=== PATIENT | female | born 1970 | race Caucasian/White ===

== ENCOUNTER 2017-11-06 09:38 | Emergency (ER) | payer OTHER ==
[~2017-11-06 09:38] MED LIST: DOCU-116 PO; LIDOP TP; MO8B PO; TYL3 PO
[2017-11-06 10:28] LABS: BASOPHILS % (AUTO) 0.3 % (0.0-5.0); EOSINOPHILS % (AUTO) 0.2 % (0.0-8.0); HEMATOCRIT 39.6 % (36-48); LYMPHOCYTES % (AUTO) 17.4 % (21.0-51.0); MEAN CORPUSCULAR HEMOGLOBIN 28.4 pg (27.0-33.0); MEAN CORPUSCULAR HGB CONC 33.7 g/dL (32.0-36.0); MEAN CORPUSCULAR VOLUME 84.2 fL (79-99); MONOCYTES % (AUTO) 4.5 % (3.0-13.0); NEUTROPHILS % (AUTO) 77.6 % (40.0-77.0); PLATELET COUNT (AUTO) 235 K/uL (130-400); RED CELL DISTRIBUTION WIDTH 15.3 % (11.0-15.5); WHITE BLOOD COUNT (AUTO) 9.1 K/uL (4.8-10.8)
[2017-11-06 10:28] LABS: APPEARANCE,URINE Clear (CLEAR); BILIRUBIN,URINE Negative (NEGATIVE); COLOR,URINE Yellow (YELLOW); GLUCOSE, URINE (UA) Negative (NEGATIVE); KETONES,URINE Negative (NEGATIVE); LEUKOCYTE ESTERASE ,URINE Negative (NEGATIVE); NITRATE,URINE Negative (NEGATIVE); OCCULT BLOOD,URINE Large (NEGATIVE); PROTEIN,URINE Negative (NEGATIVE); UROBILINOGEN,URINE 0.2 mg/dL (0.2-1.0)
[2017-11-06 10:36] LABS: CREATININE 0.7 mg/dL (0.5-1.5)
[2017-11-06 10:37] LABS: BACTERIA,URINE Rare /HPF (None Seen); WBC,URINE None Seen /HPF (0-1)
[2017-11-06 10:38] LABS: INR 0.93 (0.85-1.15); PARTIAL THROMBOPLASTIN TIME 24.1 SEC (26.3-35.5); PROTHROMBIN TIME 9.8 SEC (9.6-11.6)
[2017-11-06 10:41] LABS: ALBUMIN 3.7 g/dL (3.5-5.0); BILIRUBIN,TOTAL 0.3 mg/dL (0.2-1.0); TOTAL PROTEIN, SERUM 7.9 g/dL (6.0-8.3)
[2017-11-06] MEDS ORDERED: ASPIRIN 325 MG TABLET ONE (11:21)
[2017-11-06] MEDS ORDERED: MECLIZINE HCL 25 MG TABLET ONE (11:21)
[2017-11-06] MEDS ORDERED: SODIUM CHLORIDE 0.9% 1000ML 1,000 ML IV ONE (14:10)
== END 2017-11-06 15:25 | disposition home or self-care (01) ==
LOC: EDH 09:38
DX: H81.391 Other peripheral vertigo, right ear (principal); R79.1 Abnormal coagulation profile
CPT/HCPCS: 36415; 70450; 80053; 81001; 84484; 85025; 85610; 85730; 93005; 96360; 99285; J7030

== ENCOUNTER 2022-01-31 12:45 | Emergency (ER) | payer OTHER ==
[~2022-01-31] VITALS: Ht 170.2 cm; Wt 60.3 kg
[~2022-01-31 12:45] MED LIST changes: +IBUP-1493 PO; -MO8B PO; +PANT40TA55 PO
[2022-01-31 13:34] LABS: BASOPHILS % (AUTO) 0.5 % (0.0-5.0); EOSINOPHILS % (AUTO) 0.8 % (0.0-8.0); HEMATOCRIT 38.1 % (36-48); LYMPHOCYTES % (AUTO) 24.2 % (21.0-51.0); MEAN CORPUSCULAR HEMOGLOBIN 28.6 pg (27.0-33.0); MEAN CORPUSCULAR HGB CONC 32.3 g/dL (32.0-36.0); MEAN CORPUSCULAR VOLUME 88.6 fL (79-99); MONOCYTES % (AUTO) 5.7 % (3.0-13.0); NEUTROPHILS % (AUTO) 68.5 % (40.0-77.0); PLATELET COUNT (AUTO) 206 K/uL (130-400); RED CELL DISTRIBUTION WIDTH 16.6 % (11.0-15.5); WHITE BLOOD COUNT (AUTO) 6.5 K/uL (4.8-10.8)
[2022-01-31 14:18] LABS: CARBON DIOXIDE 22 mmol/L (21-32); CHLORIDE 106 mmol/L (101-111); CREATININE 0.8 mg/dL (0.5-1.5); GLOMERULAR FILTR. RATE CALC 81 mL/min (>60); GLUCOSE,RANDOM 85 mg/dL (70-105); POTASSIUM 3.6 mmol/L (3.5-5.1); SODIUM SERUM 141 mmol/L (136-145); UREA NITROGEN, BLOOD 10 mg/dL (7-18)
[2022-01-31 14:23] LABS: APPEARANCE,URINE Clear (CLEAR); BILIRUBIN,URINE Negative (NEGATIVE); COLOR,URINE Yellow (YELLOW); GLUCOSE, URINE (UA) Negative (NEGATIVE); KETONES,URINE Negative (NEGATIVE); LEUKOCYTE ESTERASE ,URINE Negative (NEGATIVE); NITRATE,URINE Negative (NEGATIVE); OCCULT BLOOD,URINE Negative (NEGATIVE); PH,URINE 6.5 (5.0-8.0); PROTEIN,URINE Negative (NEGATIVE); UROBILINOGEN,URINE 0.2 mg/dL (0.2-1.0)
[2022-01-31 14:23] LABS: ALANINE AMINOTRANSFERASE 9 U/L (12-78); ALBUMIN 3.6 g/dL (3.5-5.0); ASPARTATE AMINOTRANSFERASE 15 U/L (10-37); TOTAL PROTEIN, SERUM 7.7 g/dL (6.0-8.3)
[2022-01-31 14:24] LABS: ACETAMINOPHEN < 1 mcg/mL (10-30); SALICYLATE < 2.8 mg/dL (2.8-20.0)
[2022-01-31 14:35] LABS: AMPHET/METH SCREEN,URINE NEGATIVE (NEGATIVE); BARBITURATE SCREEN, URINE NEGATIVE (NEGATIVE); BENZODIAZEPINES SCREEN,URINE POSITIVE (NEGATIVE); CANNABINOID SCREEN,URINE NEGATIVE (NEGATIVE); COCAINE SCREEN,URINE NEGATIVE (NEGATIVE); OPIATE SCREEN,URINE NEGATIVE (NEGATIVE); PHENCYCLIDINE SCREEN,URINE NEGATIVE (NEGATIVE)
[2022-01-31 17:32] VITALS: BP 104/60
== END 2022-01-31 17:35 | disposition home or self-care (01) ==
LOC: EDH 12:45
DX: F10.129 Alcohol abuse with intoxication, unspecified (principal); F13.10 Sedative, hypnotic or anxiolytic abuse, uncomplicated; Z79.1 Long term (current) use of non-steroidal anti-inflammatories (NSAID)
CPT/HCPCS: 99284; 70450; 80053; 80305; 85025; 36415; 81003; G0481

== ENCOUNTER 2022-04-11 20:26 | Emergency (ER) | payer OTHER ==
[~2022-04-11] VITALS: Ht 167.6 cm; Wt 61.2 kg
[2022-04-11 21:04] LABS: BASOPHILS % (AUTO) 0.3 % (0.0-5.0); EOSINOPHILS % (AUTO) 1.2 % (0.0-8.0); HEMATOCRIT 33.6 % (36-48); LYMPHOCYTES % (AUTO) 22.9 % (21.0-51.0); MEAN CORPUSCULAR HEMOGLOBIN 29.6 pg (27.0-33.0); MEAN CORPUSCULAR HGB CONC 32.7 g/dL (32.0-36.0); MEAN CORPUSCULAR VOLUME 90.3 fL (79-99); MONOCYTES % (AUTO) 7.1 % (3.0-13.0); NEUTROPHILS % (AUTO) 68.1 % (40.0-77.0); PLATELET COUNT (AUTO) 228 K/uL (130-400); RED BLOOD CELL COUNT(AUTO) 3.72 MIL/uL (4.00-5.50); RED CELL DISTRIBUTION WIDTH 16.5 % (11.0-15.5); WHITE BLOOD COUNT (AUTO) 9.3 K/uL (4.8-10.8)
[2022-04-11 21:14] LABS: CARBON DIOXIDE 28 mmol/L (21-32); CHLORIDE 106 mmol/L (101-111); CREATININE 0.7 mg/dL (0.5-1.5); GLOMERULAR FILTR. RATE CALC 95 mL/min (>60); GLUCOSE,RANDOM 85 mg/dL (70-105); POTASSIUM 4.1 mmol/L (3.5-5.1); SODIUM SERUM 141 mmol/L (136-145); UREA NITROGEN, BLOOD 5 mg/dL (7-18)
[2022-04-11 21:18] LABS: ALANINE AMINOTRANSFERASE 58 U/L (12-78); ALBUMIN 3.5 g/dL (3.5-5.0); ALCOHOL, BLOOD 106 mg/dL (0-10); ASPARTATE AMINOTRANSFERASE 58 U/L (10-37); TOTAL PROTEIN, SERUM 7.6 g/dL (6.0-8.3)
[2022-04-11 21:19] LABS: ACETAMINOPHEN < 1 mcg/mL (10-30); SALICYLATE < 2.8 mg/dL (2.8-20.0)
[2022-04-11 21:24] LABS: APPEARANCE,URINE CLOUDY (CLEAR); BILIRUBIN,URINE NEGATIVE (NEGATIVE); COLOR,URINE LIGHT-YELLOW (YELLOW); GLUCOSE, URINE (UA) NEGATIVE (NEGATIVE); KETONES,URINE NEGATIVE (NEGATIVE); LEUKOCYTE ESTERASE ,URINE NEGATIVE Leu/uL (NEGATIVE); NITRATE,URINE NEGATIVE (NEGATIVE); OCCULT BLOOD,URINE NEGATIVE (NEGATIVE); PROTEIN,URINE NEGATIVE (NEGATIVE); UROBILINOGEN,URINE 0.2 mg/dL (0.2-1.0)
[2022-04-11 21:30] LABS: BACTERIA,URINE FEW /HPF (None Seen); HYALINE CASTS, URINE 0-1 /LPF (0-1 /LPF); MUCUS,URINE FEW LPF (None Seen); OTHER CASTS, URINE 2 /LPF (None Seen); SQUAMOUS EPITHELIAL CELL,UR MOD /HPF (0-2)
[2022-04-11 21:31] LABS: AMPHET/METH SCREEN,URINE NEGATIVE (NEGATIVE); BARBITURATE SCREEN, URINE NEGATIVE (NEGATIVE); BENZODIAZEPINES SCREEN,URINE POSITIVE (NEGATIVE); CANNABINOID SCREEN,URINE POSITIVE (NEGATIVE); COCAINE SCREEN,URINE NEGATIVE (NEGATIVE); HCG,QUALITATIVE URINE NEGATIVE (NEGATIVE); PHENCYCLIDINE SCREEN,URINE NEGATIVE (NEGATIVE)
[2022-04-12] MEDS ORDERED: ONDANSETRON 4MG TABLET ONE (07:53)
[2022-04-12] MEDS ORDERED: LOPERAMIDE HCL 2 MG CAP PO ONE ×2 (07:56→08:00)
[2022-04-12] MEDS ORDERED: ONDANSETRON 4MG TABLET PO ONE (08:00)
[2022-04-12 10:16] VITALS: BP 122/68
== END 2022-04-12 10:24 ==
LOC: EEVIPCON 20:26 → EDH 20:26
DX: R45.851 Suicidal ideations (principal); Z20.822 Contact with and (suspected) exposure to COVID-19; F32.A Depression, unspecified; Z98.890 Other specified postprocedural states; Z79.899 Other long term (current) drug therapy
CPT/HCPCS: 99285; 87635; 80053; 80305; 85025; 81025; 36415; 81001; G0481; C9803; Q0162

== ENCOUNTER 2025-02-19 15:11 | Emergency (ER) | payer BC ==
[~2025-02-19] VITALS: Ht 170.2 cm; Wt 77.1 kg
[2025-02-19] MEDS: LACTATED RINGERS 1000ML 1,000 ML IV ONE (15:46)
[2025-02-19 16:16] LABS: IMMATURE GRANULOCYTE ABSOLUTE 0.02 K/uL (0-1); NUCLEATED RED BLOOD CELLS 0.0 % (0.0-0.19); PLATELET COUNT (AUTO) 295 K/uL (130-400); RED BLOOD CELL COUNT(AUTO) 4.43 MIL/uL (4.00-5.50); RED CELL DISTRIBUTION WIDTH 14.4 % (11.0-15.5); WHITE BLOOD COUNT (AUTO) 7.4 K/uL (4.8-10.8)
[2025-02-19 16:22] LABS: CREATININE 0.8 mg/dL (0.5-1.0); GLOMERULAR FILTR. RATE CALC 89.0 mL/min (>90); GLUCOSE,RANDOM 105.0 mg/dL (70-105); SODIUM SERUM 139.0 mmol/L (136-145); UREA NITROGEN, BLOOD 8.0 mg/dL (7-18)
--- NOTE | 2025-02-19 16:25 | NUR ---
PT TO MRI AT THIS TIME
[2025-02-19 16:29] LABS: CREATINE KINASE, TOTAL 43.0 U/L (21-232)
--- NOTE | 2025-02-19 17:01 | HMCIMG ---
EXAM: CT Head Without Intravenous Contrast. CLINICAL HISTORY: 54-year-old female with a headache. TECHNIQUE: Axial computed tomography images of the head/brain without intravenous contrast. Dose reduction technique was used including one or more of the following: automated exposure control, adjustment of mA and kV according to patient size, and/or iterative reconstruction. CONTRAST: None. COMPARISON: 01/31/2022 FINDINGS: BRAIN: No acute intraparenchymal hemorrhage. No mass lesion. No CT evidence for acute territorial infarct. No midline shift or extra-axial collection. VENTRICLES: No hydrocephalus. ORBITS: The orbits are unremarkable. SINUSES AND MASTOIDS: The paranasal sinuses and mastoid air cells are clear. SOFT TISSUES: No significant facial or scalp soft tissue swelling evident. No radiopaque foreign body is seen. BONES: No acute skull fracture. IMPRESSION: 1. No acute intracranial abnormality, similar to prior CT Brain 01/31/2022. /[place]
--- NOTE | 2025-02-19 17:02 | HMCIMG ---
EXAM: MR Brain without Intravenous Contrast. CLINICAL HISTORY: 54-year-old female with dizziness. TECHNIQUE: Magnetic resonance images of the brain without intravenous contrast in multiple planes. CONTRAST: NONE. COMPARISON: None provided. FINDINGS: BRAIN: No restricted diffusion to indicate acute infarction. No intracranial mass or hemorrhage. No midline shift or extra-axial fluid collection. No cerebellar tonsillar ectopia. No abnormal enhancement. The central arterial and venous flow voids are patent. VENTRICLES: No hydrocephalus. ORBITS: The orbits are normal. SINUSES AND MASTOIDS: The sinuses and mastoid air cells are clear. BONES: No acute fracture or focal osseous lesion. IMPRESSION: 1. No acute intracranial abnormality related to the patient's headache. /[place]
[2025-02-19] MEDS ORDERED: PRED20TA3 PO (17:18)
[2025-02-19] MEDS ORDERED: MECL-244 PO (17:18)
--- NOTE | 2025-02-19 17:21 | ERN ---
General Chief Complaint: Dizzy/Light Headed Stated Complaint: NAUSEA, DIZZY Time Seen by MD: 15:13 History of Present Illness Initial Comments 54-year-old female who presents for dizziness/vertigo symptoms. Patient reports she went to bed in her normal state of health. She woke up this morning and she feels dizziness. She reports that it is constant regardless of whether she moves her close her eyes. She has not had any falls but she feels that her balance is off. No focal neurologic deficits otherwise. No vision changes. No headache. No neck stiffness. She does report that she has had some recent pain and discomfort for the last month or so in the right jaw in the TMJ area. No other symptoms. Allergies: Coded Allergies: No Known Drug Allergies (Unverified Allergy, Unknown, 12/29/15) Home Meds Active Scripts Prednisone (Prednisone) 20 Mg Tablet, 1 TAB PO BID for 5 Days, #10 TAB 0 Refills Prov:CROW GOSS DO 02/19/25 Meclizine HCl (Motion Sickness) 25 Mg Tablet, 1 TAB PO TID for dizziness for 10 Days, #30 TAB 0 Refills Prov:CROW GOSS DO 02/19/25 Pantoprazole Sodium (Protonix) 40 Mg Ectab, 40 MG PO DAILY for 30 Days, #30 TAB.EC Prov:ZORA LE MD 01/10/22 Reported Medications Lidocaine (Lidoderm Patch 5%) 1 Patch Patch, 1 PATCH TP DAILY PRN for PAIN, #5 ADH.PATCH 12/31/15 Docusate Sodium (Colace) 100 Mg Capsule, 100 MG PO BID PRN for CONSTIPATION, #30 CAP 12/31/15 Acetaminophen with Codeine (Tylenol with Codeine #3) 1 Tab Tab, 1-2 TAB PO Q4-6 PRN for PAIN LEVEL 7 TO 10, #30 TAB 12/31/15 Ibuprofen (Motrin/Advil) 800 Mg Tab, 800 MG PO TID PRN for PAIN, #90 TAB 12/31/15 Past Medical History Past Medical History: Depression Past Surgical History: Social History Social History: ETOH, Lives with family, Other ROS Dictation CONSTITUTIONAL: No chills, no fever, no weakness, no diaphoresis, no malaise. HEAD/FACE: No signs of trauma. EENT: No eye pain, no blurred vision, no tearing, no double vision, no ear pain, no ear discharge, no nose pain, no nasal congestion, no throat pain, no throat swelling, no mouth pain. RESPIRATORY: No cough, no orthopnea, no SOB, no stridor, no wheezing. CARDIOVASCULAR: No chest pain, no edema, no palpitations, no syncope. GASTROINTESTINAL/ABDOMINAL: No abdominal pain, no constipation, no diarrhea, no nausea, no vomiting. GENITOURINARY: No abnormal discharge, no dysuria, no frequent urination, no hematuria. No complaints of pain in the genitals. MUSCULOSKELETAL: No back pain, no gout, no joint pain, no joint swelling, no muscle pain, no muscle stiffness, no neck pain. INTEGUMENTARY: No change in color, no change in hair/nails, no dryness, no lesion, no lumps, no rash. NEUROLOGICAL/PSYCH: Dizziness HEMATOLOGIC/LYMPHATIC: Not anemic, no history of blood clots, no apparent bleeding, no bruising, glands not swollen. All Systems Negative, Except as Noted. Physical Exam Physical Exam Dictation VITAL SIGNS: Reviewed. GENERAL APPEARANCE: Alert, oriented x3, no acute distress HEAD AND FACE: Non-traumatic. EYES: PERRL, pink conjunctivas, eyelid no trauma, anterior chamber clear. EARS: Pinnas intact and no signs of trauma or erythema. Ear canals clear and no discharge. TMs no erythema. NOSE: No discharge, no bleeding. OROPHARYNX: Mouth normal, teeth no caries, tongue pink. Pharynx clear, no erythema. Tonsils no exudates, no abscesses noted. Mucous membrane moist. NECK: Supple, non-tender, no thyromegaly, no masses, no JVD, no bruits. BREAST: Deferred. CHEST: No tenderness, no crepitus, no paradoxical movement, no retractions. LUNGS: Clear, well-ventilated, symmetric, no rales, no wheezing, no rhonchi, no stridor, good breath sounds bilaterally. HEART: Regular rate, regular rhythm, no murmur, no gallops. VASCULAR: No peripheral edema. ABDOMEN: Soft, positive bowel sounds, nondistended, no guarding, nontender, no rebound, no masses no hepatomegaly, no splenomegaly, no Pang's sign, no hernias. RECTAL: Deferred. GENITAL: Deferred. NEUROLOGICAL: Normal speech, gross motor function intact, gross sensory function intact. MUSCULOSKELETAL: Neck nontender, full range of motion, back nontender, full range of motion. EXTREMITIES: Nontender, full range of motion. SKIN: Color pink, dry, no turgor, no rash, no lacerations, no abrasions, no contusions. LYMPHATICS: Deferred. Results Laboratory and Microbiology Lab and Micro Result Laboratory Tests Test 02/19/25 16:06 White Blood Count 7.4 K/uL (4.8-10.8) Red Blood Count 4.43 MIL/uL (4.00-5.50) Hemoglobin 13.5 g/dL (12.0-16.0) Hematocrit 41.7 % (36-48) Mean Corpuscular Volume 94.1 fL (79-99) Mean Corpuscular Hemoglobin 30.5 pg (27.0-33.0) Mean Corpuscular Hemoglobin Concent 32.4 g/dL (32.0-36.0) Red Cell Distribution Width 14.4 % (11.0-15.5) Platelet Count 295 K/uL (130-400) Mean Platelet Volume 10.8 fL (7.5-10.5) H Immature Granulocyte % (Auto) 0.3 % (0-1) Neutrophils (%) (Auto) 59.6 % (40.0-77.0) Lymphocytes (%) (Auto) 33.0 % (21.0-51.0) Monocytes (%) (Auto) 6.0 % (3.0-13.0) Eosinophils (%) (Auto) 0.8 % (0.0-8.0) Basophils (%) (Auto) 0.3 % (0.0-5.0) Neutrophils # (Auto) 4.4 K/uL (1.8-7.7) Lymphocytes # (Auto) 2.4 K/uL (1.0-4.8) Monocytes # (Auto) 0.4 K/uL (0.1-1.0) Eosinophils # (Auto) 0.06 K/uL (0.00-0.70) Basophils # (Auto) 0.02 K/uL (0.00-0.20) Absolute Immature Granulocyte (auto 0.02 K/uL (0-1) Nucleated Red Blood Cells 0.0 % (0.0-0.19) Sodium Level 139 mmol/L (136-145) Potassium Level 4.1 mmol/L (3.5-5.1) Chloride Level 105 mmol/L (101-111) Carbon Dioxide Level 28 mmol/L (21-32) Blood Urea Nitrogen 8 mg/dL (7-18) Creatinine 0.8 mg/dL (0.5-1.0) Glomerular Filtration Rate Calc 89 mL/min (>90) Random Glucose 105 mg/dL (70-105) Total Calcium 8.5 mg/dL (8.5-10.1) Total Creatine Kinase 43 U/L (21-232) Troponin I High Sensitivity 9.4 ng/L (4-50) MDM Chief complaint: Dizziness/vertigo Historian: Patient Comorbidities: None Limitations by social determinants of health: None Differential diagnosis: Central stroke versus vertigo Cranial nerves are intact Patient does have vertigo symptoms. A main concern is that she reports has been present since she woke almost 8 hours. It is not waxing and waning it does not appear to change with movements. This does not fit the pattern of a benign vertigo at this time although it is high on the differential. She does have TMJ type symptoms and this inflammation may be affecting her balance. Unfortunately, there was no neurology here at this facility. She can not be admitted due to no neurology and neurologic symptoms. We will get an MRI from the emergency department to rule out a central stroke. CT head and MRI both show no acute abnormalities or pathology. Labs are unremarkable EKG unremarkable per my interpretation Patient received IV fluids and meclizine. On re-evaluation she reports some improvement of the symptoms. I suspect this may be related to her TMJ. We will also give her a dose of dexamethasone for the inflammation. Patient's symptoms are more less improved. She has no cranial nerve deficits or neurologic disorder at this time. She has a normal MRI of the brain. Very low suspicion for any central cause of her symptoms. Likely benign vertigo. Plan will be to [place] with a prescription for meclizine, recommend PCP follow up as needed. ED Course Orders Procedure Category Date Status Time Ct Head/Brain W/O CT 02/19/25 Resulted Contrast 15:28 Mr Brain Wo Con MRI 02/19/25 Resulted 15:28 Cardiac Panel LAB 02/19/25 Complete 15:28 Cbc With Differential LAB 02/19/25 Complete 15:28 Basic Metabolic Panel LAB 02/19/25 Complete 15:28 Lactated Ringers PHA 02/19/25 Complete 1000ml (Lactated 15:30 Meclizine Hcl 25 Mg PHA 02/19/25 Complete (Antivert 25 Mg) 15:30 12 Lead Ekg Tracing- EKG 02/19/25 Complete Technical 17:14 Dexamethasone 4mg/Ml PHA 02/19/25 Complete 1ml Vial (Dexametha 17:30 Current Medications Medications (Trade) Dose Ordered Sig/Ashly Route PRN Reason Start Time Stop Time Status Last Admin Dose Admin Dexamethasone Sodium Phosphate (dexaMETHasone 4MG/ML 1ML VIAL) 6 mg ONCE ONCE IVP 02/19/25 17:30 02/19/25 17:31 DC 02/19/25 17:22 Lactated Ringer's 1,000 ml @ 0 mls/hr ONCE ONCE IV 02/19/25 15:30 02/19/25 15:40 DC 02/19/25 15:46 Meclizine HCl (ANTIvert 25 mg) 25 mg ONCE ONCE PO 02/19/25 15:30 02/19/25 15:40 DC 02/19/25 15:46 Vital Signs Date Time Temp Pulse Resp B/P (MAP) Pulse Ox O2 Delivery O2 Flow Rate FiO2 02/19/25 17:29 98.1 76 18 138/76 98 Room Air* 0 02/19/25 16:25 98.2 78 17 140/75 96 Room Air* 0 02/19/25 15:20 98.2 77 18 143/79 95 Room Air* 0 02/19/25 15:13 98.1 100 14 139/75 100 Room Air 0 DX & DISP Disposition: Discharge Departure Impression: Primary Impression: Benign paroxysmal vertigo Condition: Stable Scripts Prednisone (Prednisone) 20 Mg Tablet 1 TAB PO BID for 5 Days, #10 TAB 0 Refills Prov: CROW GOSS DO 02/19/25 Meclizine HCl (Motion Sickness) 25 Mg Tablet 1 TAB PO TID for dizziness for 10 Days, #30 TAB 0 Refills Prov: CROW GOSS DO 02/19/25 Additional Instructions: Your symptoms are most consistent with benign positional vertigo. This is a common condition caused by small crystals in the inner ear that affect her balance. You may also have some temporomandibular joint (TMJ) irritation. Thes e symptoms may be related. Your lab work (CBC, metabolic panel, troponin) is unremarkable. Your EKG is normal. The CT scan of your brain in the MRI of your brain are both normal. You received IV fluids, meclizine, and dexamethasone here in the emergency department. I have prescribed meclizine to use as needed for vertigo/dizziness. You can take this up to 3 times a day as needed. This medication may cause drowsiness, avoid while driving or operating machinery. I have prescribed prednisone. This is an anti-inflammatory steroid. Please take this twice per day as prescribed reduce inflammation. I recommend sleeping with her head slightly elevated for the next few nights. Avoid sudden movements of your head because this may trigger dizziness. If you are having active symptoms of dizziness, certain head positioning exercises like the Stanley maneuver may help. You can watch it you to video on how to perform the Stanley maneuver at home. For jaw discomfort or TMJ symptoms, avoid chewing gum or hard foods. Apply warm compresses to the area. Consider an [id number] anti-inflammatory such as naproxen or ibuprofen. Please follow up with the primary doctor within a week or so if you continue with symptoms. Please return to the emergency department if you have any concerns. Referrals: SELF,REFERRAL (PCP) CROW GOSS DO Feb 19, 2025 17:21
[2025-02-19 17:29] VITALS: BP 138/76; PULSE 76; RESP 18; TEMP 98.1; O2SAT 98
--- NOTE | 2025-02-19 17:37 | EKG ---
[facility] Test Date: 2025-02-19 Test Time: 17:32:48 Pat Name: YAN BAILEY Department: [facility] Room: Gender: F Senior [employer] Developer: [id number] : [id number] Requested By: CROW GOSS Order Number: [id number] Reading MD: Jaylan Livingston Measurements Intervals [place] Rate: 71 P: 69 CO: 130 QRS: 59 QRSD: 74 T: 55 QT: 417 QTc: 446 Interpretive Statements Sinus rhythm Ventricular premature complex Compared to ECG 01/10/2022 14:04:40 Ventricular premature complex(es) now present Electronically Signed On 02-22-2025 10:45:41 CDT by Jaylan Livingston Please click the below link to view image of tracing.
== END 2025-02-19 17:45 | disposition home or self-care (01) ==
LOC: EDH 15:11
DX: H81.10 Benign paroxysmal vertigo, unspecified ear (principal); Z79.52 Long term (current) use of systemic steroids; Z79.899 Other long term (current) drug therapy; Z98.890 Other specified postprocedural states
CPT/HCPCS: 99285; 70551; 96374; 70450; 96361; 82550; 84484; 80048; 85025; 36415; 93005; J1100; J7120